=== PATIENT | male | born 1950 | race American Indian/Alaskan Native ===

== ENCOUNTER 2021-06-21 04:20 | Emergency (ER) | payer MEDICARE, MEDICAID ==
[2021-06-21 04:46] VITALS: BP 119/73
[2021-06-21] MEDS ORDERED: traZODone 50 MG TAB PO ONE (04:48)
--- NOTE | 2021-06-21 04:50 | Emergency Department Report ---
ED General Adult HPI - General Chief complaint: Anxiety Stated complaint: CAN'T SLEEP/DUE TO SIDE EFFECTS BEEN UP 3 DAYS Source: patient Mode of arrival: Ambulatory Limitations: No Limitations - History of Present Illness Initial comments: Patient is a 70-year-old -[place] male with a history of anxiety who presents to the ED with complaint of acute onset persistent intermittent insomnia and worsening anxiety for the last 3 days. Patient states that he has been taking Ativan for anxiety as well as melatonin with no relief. Patient denies abdominal pain, headache, dizziness, syncope, chest pain, shortness of breath, lightheadedness, fever, chills, cough, dysuria, urinary frequency and urgency, diarrhea, cough or sore throat. MD Complaint: Insomnia; anxiety -: Sudden, days(s) (3) Location: head Radiation: non-radiation Severity scale (0 -10): 0 Consistency: constant Improves with: none Worsens with: none Associated Symptoms: denies other symptoms, loss of appetite. denies: confusion, chest pain, cough, diaphoresis, fever/chills, headaches, malaise, nausea/vomiting, rash, seizure, shortness of breath, syncope, weakness Treatments Prior to Arrival: none - Related Data Previous Rx's Medication Instructions Recorded Last Taken Type Amitriptyline [Elavil] 25 mg PO QHS #30 tab 06/21/21 Unknown Rx Allergies Allergy/AdvReac Type Severity Reaction Status Date / Time No Known Allergies Allergy Verified 06/21/21 04:46 ED Review of Systems ROS: Stated complaint: CAN'T SLEEP/DUE TO SIDE EFFECTS BEEN UP 3 DAYS Other details as noted in HPI Constitutional: malaise, other (Insomnia). denies: chills, fever Eyes: denies: eye pain, eye discharge, vision change ENT: denies: ear pain, throat pain Respiratory: denies: cough, shortness of breath, wheezing Cardiovascular: denies: chest pain, palpitations Endocrine: no symptoms reported Gastrointestinal: denies: abdominal pain, nausea, diarrhea Genitourinary: denies: urgency, dysuria Musculoskeletal: denies: back pain, joint swelling, arthralgia Skin: denies: rash, lesions Neurological: denies: headache, weakness, paresthesias Psychiatric: anxiety. denies: depression Hematological/Lymphatic: denies: easy bleeding, easy bruising ED Past Medical Hx - Medications Home Medications: Home Medications Medication Instructions Recorded Confirmed Last Taken Type Amitriptyline [Elavil] 25 mg PO QHS #30 tab 06/21/21 Unknown Rx ED Physical Exam - General Limitations: No Limitations General appearance: alert, in no apparent distress, anxious - Head Head exam: Present: atraumatic, normocephalic, normal inspection - Eye Eye exam: Present: normal appearance, PERRL, EOMI Pupils: Present: normal accommodation - ENT ENT exam: Present: normal exam, normal orophraynx, mucous membranes moist, TM's normal bilaterally, normal external ear exam - Neck Neck exam: Present: normal inspection, full ROM. Absent: tenderness - Respiratory Respiratory exam: Present: normal lung sounds bilaterally. Absent: respiratory distress, wheezes, rales, rhonchi, chest wall tenderness, accessory muscle use, decreased breath sounds, prolonged expiratory, other - Cardiovascular Cardiovascular Exam: Present: regular rate, normal rhythm, normal heart sounds. Absent: systolic murmur, diastolic murmur, rubs, gallop - GI/Abdominal GI/Abdominal exam: Present: soft, normal bowel sounds. Absent: tenderness, guarding, rebound, hyperactive bowel sounds, hypoactive bowel sounds, mass - Extremities Exam Extremities exam: Present: normal inspection, full ROM, normal capillary refill. Absent: tenderness - Back Exam Back exam: Present: normal inspection, full ROM. Absent: tenderness, CVA tenderness (R), CVA tenderness (L), muscle spasm, paraspinal tenderness, vertebral tenderness - Neurological Exam Neurological exam: Present: alert, oriented X3, CN II-XII intact, normal gait, reflexes normal - Psychiatric Psychiatric exam: Present: normal affect, normal mood, anxious. Absent: homicidal ideation, suicidal ideation - Skin Skin exam: Present: warm, dry, intact, normal color. Absent: rash ED Course Vital Signs 06/21/21 04:37 Temperature 99.1 F Pulse Rate 105 H Respiratory 14 Rate Blood Pressure 119/73 [Right] O2 Sat by Pulse 99 Oximetry ED Medical Decision Making - Medical Decision Making This is a 70-year-old -[place] male with a history of anxiety who presents to the ED with complaint of acute onset persistent intermittent insomnia and worsening anxiety for the last 3 days. Patient states that he has been taking Ativan for anxiety as well as melatonin with no relief. In the ED, patient is alert and oriented x3 and is not in any distress. Patient is however anxious, tachycardic but afebrile in triage. Patient was treated for insomnia in the ED, observed, and on reevaluation, vital signs are stable, patient was therefore discharged home on medications and advised to follow-up with his primary care physician in 3 to 5 days for reevaluation or return to the ED immediately if symptoms get worse. - Differential Diagnosis Anxiety; insomnia; depression Critical care attestation.: If time is entered above; I have spent that time in minutes in the direct care of this critically ill patient, excluding procedure time. ED Disposition Clinical Impression: Anxiety as acute reaction to exceptional stress Insomnia disorder Qualifiers: Insomnia type: unspecified Qualified Code(s): G47.00 - Insomnia, unspecified Disposition: 01 HOME / SELF CARE / HOMELESS Is pt being admited?: No Does the pt Need Aspirin: No Condition: Stable Instructions: Insomnia, Generalized Anxiety Disorder, Adult Additional Instructions: Take medication with food, drink plenty of fluids and follow-up with your primary care physician in 3 to 5 days for reevaluation. Return to the ED immediately if symptoms get worse. Prescriptions: Amitriptyline [Elavil] 25 mg PO QHS #30 tab Referrals: [facility] [Provider Group] - 3-5 Days Time of Disposition: 04:49 Print Language: IRISH
== END 2021-06-21 06:26 | disposition home or self-care (01) ==
LOC: ED 04:20
DX: F41.1 Generalized anxiety disorder (principal); F43.0 Acute stress reaction; G47.00 Insomnia, unspecified
CPT/HCPCS: 99282; 99283

== ENCOUNTER 2021-10-24 15:02 | Emergency (ER) | payer MEDICARE ==
[2021-10-24 15:50] VITALS: BP 117/80
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
== END 2021-10-24 21:30 | disposition home or self-care (01) ==
LOC: ED 15:02
DX: F19.982 Other psychoactive substance use, unspecified with psychoactive substance-induced sleep disorder (principal); I10 Essential (primary) hypertension; M19.90 Unspecified osteoarthritis, unspecified site; Z85.9 Personal history of malignant neoplasm, unspecified; Z79.899 Other long term (current) drug therapy
CPT/HCPCS: 99282

== ENCOUNTER 2021-11-13 16:12 | Emergency (ER) | payer MEDICARE ==
[2021-11-13 17:30] VITALS: BP 122/71
== END 2021-11-13 22:32 | disposition left against medical advice (07) ==
LOC: ED 16:12
DX: Z46.6 Encounter for fitting and adjustment of urinary device (principal); Z53.21 Procedure and treatment not carried out due to patient leaving prior to being seen by health care provider